=== PATIENT | female | born 2000 | race Caucasian/White ===

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

== ENCOUNTER 2019-03-07 06:28 | Inpatient (IN) ==
[2019-03-07 07:19] LABS: Appearance Urine Clear (Clear); Bacteria Urine Automated Negative (Negative); Bilirubin Urine Negative (Negative); Blood Urine 1+ (Negative); Cast Urine Automated 0 /lpf (0-5); Color Urine Yellow; Glucose Urine UA Negative (Negative); Ketones Urine Negative (Negative); Leukocyte Esterase Urine Negative (Negative); Nitrite Urine Negative (Negative); Protein Urine Negative (Negative); RBC Urine Automated 0-4 /hpf (0-4); Specific Gravity Urine 1.008 (1.000-1.030); Urobilinogen Urine Negative (Negative)
[2019-03-07 07:33] LABS: Amphetamines+Metham, Urine Neg (Neg); Barbiturates, Urine Neg (Neg); Benzodiazepine, Urine Neg (Neg); Cocaine, Urine Neg (Neg); MDMA (Ecstacy), Urine Neg (Neg); Methadone, Urine Neg (Neg); Opiate, Urine Neg (Neg); Phencyclidine, Urine Neg (Neg)
[2019-03-07 07:47] LABS: Basophils # (auto) 0.04 K/uL (0-0.2); Basophils % (auto) 0.4 %; Eosinophils # (auto) 0.06 K/uL (0-0.5); Eosinophils % (auto) 0.7 %; Hematocrit (blood only) 36.3 % (37-47); Hemoglobin 12.6 g/dL (12.0-16.0); Immature Granulocytes # (auto) 0.02 K/uL (0.00-0.02); Immature Granulocytes % (auto) 0.2 %; Lymphocytes # (auto) 1.34 K/uL (1.2-3.4); Mean Corpuscular Hemoglobin 30.8 pg (25-34); Mean Corpuscular Hgb Conc 34.7 g/dL (32-36); Mean Corpuscular Volume 88.8 fL (80-100); Mean Platelet Volume 10.3 fL (7.4-10.4); Monocytes # (auto) 0.56 K/uL (0.11-0.59); Monocytes % (auto) 6.3 %; Neutrophils # (auto) 6.89 K/uL (1.4-6.5); Neutrophils % (auto) 77.4 %; Platelet Count 330 K/uL (130-400); RDW Coefficient of Variation 12.4 % (11.5-14.5); RDW Standard Deviation 39.7 fL (36.4-46.3); Red Blood Count 4.09 M/uL (4.2-5.4); White Blood Count 8.91 K/uL (4.8-10.8)
[2019-03-07 08:05] LABS: Albumin Level 3.5 gm/dl (3.4-5.0); BUN Creatinine Ratio 17.7 (10-20); Calcium 9.3 mg/dl (8.5-10.1); Creatinine Clr Calc Pharmacy 108.4 ml/min; Est GFR (African American) 114.3; Est GFR (Non-African American) 98.6; Potassium 4.1 mmol/L (3.5-5.1)
[2019-03-07 08:12] LABS: Acetaminophen < 2 ug/ml (10-30); Salicylate < 1.7 mg/dl (2.8-20)
[2019-03-07 08:15] LABS: Albumin Globulin Ratio 0.8 (0.9-2); Bilirubin,Total 0.2 mg/dl (0.2-1); Globulin 4.7 gm/dl (2.5-4.0); Thyroid Stimulating Hormone 1.59 uIu/ml (0.300-4.500); Total Protein 8.2 gm/dl (6.4-8.2)
--- NOTE | 2019-03-07 13:01 | Emergency Department Note ---
Entered by Nicolas Dailey acting as a scribe for Rigoberto Day DO History of Present Illness General Chief Complaint: Mental Health Evaluation Stated Complaint: EMOTIONAL/MENTAL HEALTH EVALUATION Source: patient History of Present Illness Provider complaint: suicidal ideation Onset (ago): week(s) Duration: getting worse History of same: Yes Context: + significant life stressor Associated psychiatric symptoms: + depression and + suicidal ideation; no auditory hallucinations and no visual hallucinations The patient is a 18 year old female w/ PMHx of depression and anxiety who presents to the ED for a mental health evaluation after having an increase in her depression causing suicidal ideation over the past week. The patient states that her condition today was caused by an argument she got in with her boyfriend. The patient reports that the argument was over the fact that she cheated on him and he found out. 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 The patient explained that this caused a panic attack which then escalated to the thoughts of suicide. The patient states that she has discussed with her brother about how she would kill herself and her current plan is to get into a car accident. The patient reports that she has been taking Zoloft for 2 years now and she has never been treated as an inpatient. She adds that she did a sleep study recently and her doctors wanted to change when she took the Zoloft, so she has been forgetting to take it for the past week. The patient denies any AVH, physical symptoms or other past medical history. Home Medications Home Medications Medication Instructions Recorded Confirmed Type drospirenone-ethinyl estradiol 1 tab PO DAILY 03/07/19 03/07/19 History [Loryna (28)] sertraline [Zoloft] 100 mg PO HS 03/07/19 03/07/19 History Allergies Allergy/AdvReac Type Severity Reaction Status Date / Time nickel Allergy Intermediate Rash Verified 03/07/19 07:57 Past Med/Surg History Medical History Anxiety Depression Family History Other No pertinent family history in first degree relatives Social History Feels Safe at Home: Yes Smoking Status: Never smoker Review of Systems See HPI for pertinent positives & negatives. and A total of 10 systems reviewed and were otherwise negative Physical Exam Vital Signs Vital Signs - 24 hr 03/07/19 06:39 03/07/19 08:13 Temperature 36.9 C Temperature Source Oral Sepsis Recent Fever Within 48 Hours No Sepsis Action Taken by Nursing No Action Required Pulse Rate 87 Pulse Rate [Finger] 72 Pulse Rhythm [Finger] Regular Respiratory Rate 20 16 Respiratory Effort / Characteristics Non-Labored Non-Labored Respiratory Depth Normal Normal Respiratory Pattern Regular Blood Pressure 125/81 Blood Pressure [Left Arm] 118/73 Blood Pressure Mean 95 Blood Pressure Mean [Left Arm] 88 Blood Pressure Position [Left Arm] Sitting Pulse Oximetry 100 100 Oxygen Delivery Method Room Air Room Air GENERAL: Sitting up in bed, alert, wearing the hospital blues, non-toxic, tearful EYE EXAM: normal conjunctiva. OROPHARYNX: no exudate, no erythema, lips, buccal mucosa, and tongue normal and mucous membranes are moist NECK: supple, no nuchal rigidity, no adenopathy, non-tender LUNGS: Clear to auscultation. Normal chest wall mechanics HEART: no murmurs, S1 normal and S2 normal ABDOMEN: abdomen soft, non-tender, normo-active bowel, sounds, no masses, no rebound or guarding. BACK: Back is symmetrical on inspection and there is no deformity, no midline tenderness, no CVA tenderness. SKIN: no rashes and no bruising UPPER EXTREMITIES: upper extremities are grossly normal. LOWER EXTREMITIES: No pitting edema. NEURO EXAM: Normal sensorium, cranial nerves II-XII grossly intact, normal speech, no gross weakness of arms, no gross weakness of legs. PSYCH: Admits to with plan to crash car. Course ED COURSE: Vital signs were reviewed and showed situational hypertension. The patients medical record was reviewed The above diagnostic studies were performed and reviewed. ED treatments and interventions as stated above. 0720: The patient was evaluated in room B08. A complete history and physical examination was performed. 1214: Upon reevaluation, the patient is resting in bed. The patient was evaluated by the psych bilingual patient support caseworker and was accepted to [address] [place] [address]. I discussed my findings with the patient and she understands and agrees with the treatment plan. Based on the patients age, coexisting illnesses, exam and lab findings the decision to treat as an inpatient was made. The patient remained stable while under my care. The patient appeared well at the time of discharge. Medical Decision Making Differential Diagnosis Differential diagnoses considered include mood disorder, infection, hypoglycemia, electrolyte abnormalities, cardiac sources, intracerebral event, toxicologic, neurologic, as well as others. Medical Records Attestation: I reviewed the patient's medical records. Home Medications Current Medication List: was personally reviewed by me Laboratory Data Attestation: I reviewed the patient's lab results. Result diagrams: 03/07/19 07:24 03/07/19 07:24 Lab Results 03/07/19 03/07/19 03/07/19 Range/Units 06:45 06:45 06:45 WBC (4.8-10.8) K/uL RBC (4.2-5.4) M/uL Hgb (12.0-16.0) g/dL Hct (37-47) % MCV (80-100) fL MCH (25-34) pg MCHC (32-36) g/dL RDW Std Deviation (36.4-46.3) fL RDW Coeff of Tomás (11.5-14.5) % Plt Count (130-400) K/uL MPV (7.4-10.4) fL Immature Gran % (Auto) % Neut % (Auto) % Lymph % (Auto) % [place] % (Auto) % Eos % (Auto) % Baso % (Auto) % Immature Gran # (Auto) (0.00-0.02) K/uL Neut # (Auto) (1.4-6.5) K/uL Lymph # (Auto) (1.2-3.4) K/uL [place] # (Auto) (0.11-0.59) K/uL Eos # (Auto) (0-0.5) K/uL Baso # (Auto) (0-0.2) K/uL Sodium (136-145) mmol/L Potassium (3.5-5.1) mmol/L Chloride (98-107) mmol/L Carbon Dioxide (21-32) mmol/L Anion Gap (3-11) BUN (7-18) mg/dl Creatinine (0.6-1.2) mg/dl Est Cr Clr Drug Dosing ml/min Est GFR ( Amer) Est GFR (Non-Af Amer) BUN/Creatinine Ratio (10-20) Glucose (70-99) mg/dl Calcium (8.5-10.1) mg/dl Total Bilirubin (0.2-1) mg/dl AST (15-37) U/L ALT (12-78) U/L Alkaline Phosphatase (45-117) U/L Total Protein (6.4-8.2) gm/dl Albumin (3.4-5.0) gm/dl Globulin (2.5-4.0) gm/dl Albumin/Globulin Ratio (0.9-2) TSH (0.300-4.500) uIu/ml Urine Color Yellow Urine Appearance Clear (Clear) Urine pH 7.0 (4.5-7.5) Ur Specific [place] 1.008 (1.000-1.030) Urine Protein Negative (Negative) Urine Glucose (UA) Negative (Negative) Urine Ketones Negative (Negative) Urine Blood 1+ H (Negative) Urine Nitrite Negative (Negative) Urine Bilirubin Negative (Negative) Urine Urobilinogen Negative (Negative) Ur Leukocyte Esterase Negative (Negative) Urine WBC (Auto) 1-5 (0-5) /hpf Urine RBC (Auto) 0-4 (0-4) /hpf U Hyaline Cast (Auto) 0 (0-5) /lpf U Epithel Cells (Auto) 5-10 H (0-5) /lpf Urine Bacteria (Auto) Negative (Negative) POC Ur Test NEG (NEG) Salicylates (2.8-20) mg/dl Urine Opiates Screen Neg (Neg) Ur Methadone, Qual Neg (Neg) Acetaminophen (10-30) ug/ml Urine Barbiturates Neg (Neg) Ur Phencyclidine (PCP) Neg (Neg) U Amphetamin/Meth Scrn Neg (Neg) MDMA (Ecstasy) Screen Neg (Neg) U Benzodiazepines Scrn Neg (Neg) Ur Cocaine Metabolite Neg (Neg) U Marijuana (THC) Screen Neg (Neg) Ethyl Alcohol mg/dL (0-3) mg/dl 03/07/19 03/07/19 03/07/19 Range/Units 07:24 07:24 07:24 WBC 8.91 (4.8-10.8) K/uL RBC 4.09 L (4.2-5.4) M/uL Hgb 12.6 (12.0-16.0) g/dL Hct 36.3 L (37-47) % MCV 88.8 (80-100) fL MCH 30.8 (25-34) pg MCHC 34.7 (32-36) g/dL RDW Std Deviation 39.7 (36.4-46.3) fL RDW Coeff of Tomás 12.4 (11.5-14.5) % Plt Count 330 (130-400) K/uL MPV 10.3 (7.4-10.4) fL Immature Gran % (Auto) 0.2 % Neut % (Auto) 77.4 % Lymph % (Auto) 15.0 % [place] % (Auto) 6.3 % Eos % (Auto) 0.7 % Baso % (Auto) 0.4 % Immature Gran # (Auto) 0.02 (0.00-0.02) K/uL Neut # (Auto) 6.89 H (1.4-6.5) K/uL Lymph # (Auto) 1.34 (1.2-3.4) K/uL [place] # (Auto) 0.56 (0.11-0.59) K/uL Eos # (Auto) 0.06 (0-0.5) K/uL Baso # (Auto) 0.04 (0-0.2) K/uL Sodium 139 (136-145) mmol/L Potassium 4.1 (3.5-5.1) mmol/L Chloride 105 (98-107) mmol/L Carbon Dioxide 26 (21-32) mmol/L Anion Gap 8.0 (3-11) BUN 15 (7-18) mg/dl Creatinine 0.85 (0.6-1.2) mg/dl Est Cr Clr Drug Dosing 108.4 ml/min Est GFR ( Amer) 114.3 Est GFR (Non-Af Amer) 98.6 BUN/Creatinine Ratio 17.7 (10-20) Glucose 100 H (70-99) mg/dl Calcium 9.3 (8.5-10.1) mg/dl Total Bilirubin 0.2 (0.2-1) mg/dl AST 18 (15-37) U/L ALT 16 (12-78) U/L Alkaline Phosphatase 67 (45-117) U/L Total Protein 8.2 (6.4-8.2) gm/dl Albumin 3.5 (3.4-5.0) gm/dl Globulin 4.7 H (2.5-4.0) gm/dl Albumin/Globulin Ratio 0.8 L (0.9-2) TSH 1.590 (0.300-4.500) uIu/ml Urine Color Urine Appearance (Clear) Urine pH (4.5-7.5) Ur Specific [place] (1.000-1.030) Urine Protein (Negative) Urine Glucose (UA) (Negative) Urine Ketones (Negative) Urine Blood (Negative) Urine Nitrite (Negative) Urine Bilirubin (Negative) Urine Urobilinogen (Negative) Ur Leukocyte Esterase (Negative) Urine WBC (Auto) (0-5) /hpf Urine RBC (Auto) (0-4) /hpf U Hyaline Cast (Auto) (0-5) /lpf U Epithel Cells (Auto) (0-5) /lpf Urine Bacteria (Auto) (Negative) POC Ur Test (NEG) Salicylates < 1.7 L (2.8-20) mg/dl Urine Opiates Screen (Neg) Ur Methadone, Qual (Neg) Acetaminophen < 2 L (10-30) ug/ml Urine Barbiturates (Neg) Ur Phencyclidine (PCP) (Neg) U Amphetamin/Meth Scrn (Neg) MDMA (Ecstasy) Screen (Neg) U Benzodiazepines Scrn (Neg) Ur Cocaine Metabolite (Neg) U Marijuana (THC) Screen (Neg) Ethyl Alcohol mg/dL (0-3) mg/dl 03/07/19 Range/Units 07:24 WBC (4.8-10.8) K/uL RBC (4.2-5.4) M/uL Hgb (12.0-16.0) g/dL Hct (37-47) % MCV (80-100) fL MCH (25-34) pg MCHC (32-36) g/dL RDW Std Deviation (36.4-46.3) fL RDW Coeff of Tomás (11.5-14.5) % Plt Count (130-400) K/uL MPV (7.4-10.4) fL Immature Gran % (Auto) % Neut % (Auto) % Lymph % (Auto) % [place] % (Auto) % Eos % (Auto) % Baso % (Auto) % Immature Gran # (Auto) (0.00-0.02) K/uL Neut # (Auto) (1.4-6.5) K/uL Lymph # (Auto) (1.2-3.4) K/uL [place] # (Auto) (0.11-0.59) K/uL Eos # (Auto) (0-0.5) K/uL Baso # (Auto) (0-0.2) K/uL Sodium (136-145) mmol/L Potassium (3.5-5.1) mmol/L Chloride (98-107) mmol/L Carbon Dioxide (21-32) mmol/L Anion Gap (3-11) BUN (7-18) mg/dl Creatinine (0.6-1.2) mg/dl Est Cr Clr Drug Dosing ml/min Est GFR ( Amer) Est GFR (Non-Af Amer) BUN/Creatinine Ratio (10-20) Glucose (70-99) mg/dl Calcium (8.5-10.1) mg/dl Total Bilirubin (0.2-1) mg/dl AST (15-37) U/L ALT (12-78) U/L Alkaline Phosphatase (45-117) U/L Total Protein (6.4-8.2) gm/dl Albumin (3.4-5.0) gm/dl Globulin (2.5-4.0) gm/dl Albumin/Globulin Ratio (0.9-2) TSH (0.300-4.500) uIu/ml Urine Color Urine Appearance (Clear) Urine pH (4.5-7.5) Ur Specific [place] (1.000-1.030) Urine Protein (Negative) Urine Glucose (UA) (Negative) Urine Ketones (Negative) Urine Blood (Negative) Urine Nitrite (Negative) Urine Bilirubin (Negative) Urine Urobilinogen (Negative) Ur Leukocyte Esterase (Negative) Urine WBC (Auto) (0-5) /hpf Urine RBC (Auto) (0-4) /hpf U Hyaline Cast (Auto) (0-5) /lpf U Epithel Cells (Auto) (0-5) /lpf Urine Bacteria (Auto) (Negative) POC Ur Test (NEG) Salicylates (2.8-20) mg/dl Urine Opiates Screen (Neg) Ur Methadone, Qual (Neg) Acetaminophen (10-30) ug/ml Urine Barbiturates (Neg) Ur Phencyclidine (PCP) (Neg) U Amphetamin/Meth Scrn (Neg) MDMA (Ecstasy) Screen (Neg) U Benzodiazepines Scrn (Neg) Ur Cocaine Metabolite (Neg) U Marijuana (THC) Screen (Neg) Ethyl Alcohol mg/dL < 3.0 (0-3) mg/dl Blood Pressure Blood Pressure Findings: Normal blood pressure MDM Narrative Patient is a 18-year-old female who presents the ER for suicidal ideations which is been present for the past 24 hours. Patient notes that she has been having t hese intermittently over the past week. No auditory or visual hallucinations. Labs were obtained and showed no significant leukocytosis or anemia. BMP along with LFTs bilirubin and TSH was unremarkable. UA was unremarkable. Tox was negative. Alcohol was negative. Patient was agreeable to come in on 201. Patient was evaluated and admitted to 3 S. Impression & Plan Mood disorder, Suicidal thoughts Discharge Plan Visit Data Chief Complaint: Mental Health Evaluation Stated Complaint: EMOTIONAL/MENTAL HEALTH EVALUATION ED Provider: Rigoberto Day Discharge Problem: Mood disorder, Suicidal thoughts Patient Disposition: Transfer Behavioral Health Fac Forms Stand Alone Forms: My [facility], Suicide Prevention Resources Prescriptions Prescriptions: No Action drospirenone-ethinyl estradiol [Loryna (28)] 3-0.02 mg tablet 1 tab PO DAILY RF: 0 sertraline [Zoloft] 100 mg tablet 100 mg PO HS RF: 0 Referrals Referrals: Christie Clark, [Primary Care Provider] - The scribe's documentation has been prepared under my direction and personally reviewed by me in its entirety. I confirm that the note above accurately reflects all work, treatment, procedures, and medical decision making performed by me.
[2019-03-07] MEDS ORDERED: ACETAMINOPHEN 325 MG TAB PO PRN (13:45)
[2019-03-07] MEDS ORDERED: BISMUTH SUBSALICYLATE PER ML OMNICELL CHARGE PO PRN (13:45)
[2019-03-07] MEDS ORDERED: SODIUM CHLORIDE 0.65% NA SOLN 45 ML (OCEAN) PRN (13:45)
[2019-03-07] MEDS ORDERED: MAGNESIUM HYDROXIDE SUSP 30 ML UDC PO PRN (13:45)
[2019-03-07] MEDS ORDERED: ALUMINUM/MAGNESIUM SUSP 30 ML UDC PO PRN (13:45)
[2019-03-07 14:10] VITALS: O2SAT 98
[2019-03-07] MEDS: DROSPIRENONE PO SCH (19:22)
[2019-03-07] MEDS: [UNRECOGNIZED DRUG - OTHER] PO SCH (19:22)
[2019-03-08] MEDS: [UNRECOGNIZED DRUG - OTHER] PO SCH (08:49)
[2019-03-08] MEDS: DROSPIRENONE PO SCH (08:49)
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
[2019-03-08] MEDS ORDERED: BACITRACIN OINT 15 GM TUBE EXT PRN (10:31)
[2019-03-08] MEDS: FLUOXETINE HCL 20 MG CAP PO SCH (13:06)
[2019-03-09] MEDS: DROSPIRENONE PO SCH (08:50)
[2019-03-09] MEDS: [UNRECOGNIZED DRUG - OTHER] PO SCH (08:50)
[2019-03-09] MEDS: FLUOXETINE HCL 20 MG CAP PO SCH (08:51)
--- NOTE | 2019-03-09 11:49 | Psychiatric Progress Note ---
Date of Service March 09, 2019 Impression / Recommendations Impression 18-year-old female admitted voluntarily for inpatient psychiatric treatment on 03/07/19 after presenting to the ED with reports of worsening depression and SI, with consideration to crash her car in attempt to end her life. Pt has history of acting on this thought once in the past. 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 Pt's symptoms are consistent with diagnoses of recurrent major depressive disorder and generalized anxiety disorder with panic attacks. There is reported concern that her reports of chronic fatigue may be related to her depression, and may be impacted by a possible adverse reaction from sertraline. Pt was agreeable with discontinuation of sertraline and initiation of fluoxetine 20mg qAM. Pt has been participating in group and recreational programming. A family meeting is scheduled for this afternoon. Patient requires inpatient psychiatric hospitalization due to risk of suicide if discharged prematurely, without adequate mitigation of risk factors. (1) Suicidal thoughts: 03/08 - Admitted to a locked inpatient behavioral health unit, on q15 minute safety checks - Encourage medication initiation/adjustments as indicated - Encourage participation in group and recreational therapies - Gather collateral information from outpatient providers - Suggest family meeting to involve outpatient supports in safety planning - Arrange appropriate aftercare 03/09 - Pt denies SI today, but admits to ongoing concern about how she will handle difficult life events without continued suicidality (2) Depression: 03/08 - Meets criteria for major depressive disorder, recurrent - with most recent episode beginning about 3 months ago. Differential diagnoses includes dysthymic disorder, adjustment disorder, acute stress reaction, or mood disorder, NOS. - Discontinue sertraline and initiate fluoxetine 20mg daily - risks, benefits, alternatives, and potential side effects reviewed, including black box warning regarding suicidality in the adolescent population. Pt verbalized understanding, asked appropriate questions, and was ultimately agreeable with initiating the medication. - Request information from PCP and therapist to clarify diagnosis and reported symptoms. - Gather collateral from family and other supports - Encourage family meeting with outpatient supports, likely parents - Encourage participation in group and recreational programming, development of healthy and effective coping strategies - Coordinate with the university regarding schoolwork - Refer for outpatient psychiatric prescriber 03/09 - Continue fluoxetine 20mg daily, consider further titration prior to discharge - Family meeting with parents and brother this afternoon - Continue to encourage development of healthy coping strategies, ways to distract from negative thoughts (3) Generalized anxiety disorder with panic attacks: 03/08 - Initiation of fluoxetine 20mg daily, as above - Hydroxyzine prn for acute anxiety - Encourage development of healthy and effective coping strategies 03/09 - As above (4) Hypersomnia: 03/08 - Sleep study results reviewed - testing completed on 01/26/19. - Impression was significant for primary snoring, abnormal sleep architecture likely due to "first night effect", and recommendation to follow-up with multiple sleep latency test to further evaluate - It had been recommended to switch dosing of sertraline from morning to evening, given concern that sedation may be related to adverse effect from medication Inventory Assets Strengths: willingness for treatment, intelligence, consistent social supports Needs: appropriate adjustments to medications, therapeutic interventions, development of healthy and effective coping strategies Risk Factors Assessment Male: No : Yes Do You Have Access To A Gun?: Yes (kept in safe, patient not aware of location of [place]) Health Problems: No Mental Health Diagnoses: Yes Substance Use Disorders: No Previous Attempt: Yes Family History of Suicide: No Previous Psychiatric Hospitalization: No Hopelessness: Yes Smoker: No Protective Factors Assessment Catholic Beliefs: Yes : No Responsible for Young Children: No Employed: No Stable Relationships: No Supportive Family: Yes Good Rapport with Provider: Yes Interval History Identifying Information MARIAELENA WING is a 18-year-old F who currently lives in [place] with her parents. Pt has a history of anxiety and depression, and was admitted on 03/07/19 13:46 on a 201 voluntary commitment for worsening depressive symptoms and SI with consideration to crash her car. Chief Complaint "I got a call from my boyfriend last night. That was a little rough." Review of Systems Notes Constitutional: denied Cardiovascular: denied Respiratory: denied Gastrointestinal: denied Neurological: denied Psychiatric: denies symptoms other than stated above Total of at least 10 systems reviewed, pertinent positives as above and in HPI. Sleep Information Total Hours of Sleep: 7.5 Sleep Comments: pt on q-15 minute checks Meal Information Percent Meal Consumed - Breakfast: 100 Percent Meal Consumed - Lunch: 100 Percent Meal Consumed - Dinner: 100 Subjective Subjective Patient was seen & assessed and interval progress reviewed with treatment team. Staff reports the patient has been participating in groups and is supportive of peers. She has a family meeting scheduled for this afternoon with her parents and brother. Patient rated her mood a 6/10 and "anxious" last evening. Patient was seen today to assess progress since admission. She shares with this provider that she spoke with her boyfriend over the phone last evening, a conversation which she describes as "a little rough." Patient shares with this provider that her boyfriend perceived her admission as an acute reaction to their argument, feeling her suicidal thoughts were "a way to get attention." Heath perez states that she tried to share honestly with her boyfriend that these are struggle she has had for years prior to starting a relationship with him. Patient states her boyfriend "did not mention that we were broken up", but she remains uncertain of their exact status at this time. Patient is planning to discuss this further, after she is able to better organize her own thoughts. Patient states "I was a 2/10 after the phone call. I was happy he called, but my mind kept racing. The thoughts carried over into this morning." She states she was a 4/10 after friends from [employer] visited, and then a 6/10 after her family visited. Pt states that she was happy to have a conversation with some "older supports through my [employer]", as she states they were able to provide a "biblical perspective." Pt states that they discussed her frustration when things don't go as planned, and she was reminded "that there is a greater plan than just mine. That when things go wrong, it must not be part of His plan. That really changed my mind set a lot." Pt states she has been practicing techniques to distract herself from negative thoughts. She denies SI at this time. When asked how patient feels she would manage difficult conversations in the future that may lead to recurrence of SI, she states "I think reminding myself that it must not be part of the plan, and using my other coping skills." Pt does admit she is "scared I won't be able to do these things on my own, but I do think I'm already learning a lot." She denies acute needs or concerns today. Physical Exam Psychiatric Orientation: alert, oriented x 3 and cooperative (and pleasant) Apperance: appropriately dressed (casually, in t-shirt and sweat pants), appropriately groomed (recently showered) and appeared stated age Eye Contact: good eye contact Motor Behavior: steady gait and station and no abnormal motor movements Speech: normal rate/rhythm/volume of speech Affect: euthymic affect (joking and smiling appropriately ), + anxious affect and mood congruent with affect Mood: + anxious mood ("Still worried about how I will handle things on my own") Thought Process: goal directed thought process, linear/logical thought process, clear/coherent thought process and thought association intact Thought Content: reality based without delusions; no hopelessness and no worthlessness Suicidal Thoughts: denies suicidal thoughts and denies suicidal intent Homicidal Thoughts: denies homicidal thoughts Hallucinations: no auditory hallucinations and no visual hallucinations Cognition: remote memory grossly intact, attention grossly intact and language grossly intact Insight: good insight Judgement: good judgement Vital Signs (Past 24 Hours) Last Vital Signs Temp 36.7 C 03/09/19 07:04 Pulse 92 H 03/09/19 07:05 Resp 18 03/09/19 07:04 BP 99/64 L 03/09/19 07:05 Pulse Ox 98 03/07/19 14:08 Results & Data Current Inpatient Medications Current Inpatient Medications: Current Inpatient Medications Acetaminophen (Tylenol) 650 mg PO Q4H PRN PRN Reason: Headache or Minor Fever Stop: 04/06/19 13:44 Last Admin: 03/08/19 19:31 Dose: 650 mg Documented by: Al Hydrox/Mg Hydrox/Simethicone (Maalox) 30 ml PO Q4H PRN PRN Reason: GI Upset Stop: 04/06/19 13:44 Bacitracin (Bacitracin) 1 appln EXT TID PRN PRN Reason: Affected Skin Folds Stop: 04/07/19 10:30 Last Admin: 03/08/19 13:23 Dose: 1 appln Documented by: Bismuth Subsalicylate (Kaopectate) 15 ml PO PRN PRN PRN Reason: Loose Stool Stop: 04/06/19 13:44 Fluoxetine HCl (Prozac) 20 mg PO QAM ETHAN Stop: 04/07/19 11:44 Last Admin: 03/09/19 08:51 Dose: 20 mg Documented by: Hydroxyzine HCl (Vistaril) 25 mg PO Q4H PRN PRN Reason: Anxiety Stop: 04/06/19 13:44 Hydroxyzine HCl (Vistaril) 50 mg PO HSZ PRN PRN Reason: Insomnia Stop: 04/06/19 13:44 Magnesium Hydroxide (Milk Of Magnesia) 30 ml PO DAILY PRN PRN Reason: Constipation Stop: 04/06/19 13:44 Drospirenone & (Ethinyl) 1 ea PO DAILY ETHAN Stop: 04/06/19 18:29 Last Admin: 03/09/19 08:50 Dose: 1 ea Documented by: Sodium Chloride ([place] Nasal) 1 - 2 sprays NA PRN PRN PRN Reason: Nasal Dryness/Congestion Stop: 04/06/19 13:44 Mental Health & Subst Abuse Tx Therapist Name of Therapist: [employer] Therapist's ext 11 Date of Therapist Appointment: 03/15/19 Time of Therapist Appointment: 11:30am Therapy Appointment Comment: [address] [place] [address] Deflash And Wash Operator Name of Deflash And Wash Operator: None Post Discharge Appointments Primary Care Physician Name Of Family Doctor: Margaret Clark Primary Care Provider Appointment Comment: [address], [place] [address] Contact Information Discharge Discharge Address: [address] [place] [address], [place] [address] (1) Depression Active/Remission status: currently active Depression Type: major depressive disorder Major depression episode severity: severe Major depression recurrence: recurrent Psychotic features: without psychotic features Qualified Code(s): F33.2 - Major depressive disorder, recurrent severe without psychotic features
[2019-03-10] MEDS: [UNRECOGNIZED DRUG - OTHER] PO SCH (09:23)
[2019-03-10] MEDS: DROSPIRENONE PO SCH (09:23)
[2019-03-10] MEDS: FLUOXETINE HCL 20 MG CAP PO SCH (09:23)
[2019-03-10] MEDS ORDERED: FLUOXETINE HCL 20 MG CAP PO ONE (10:28)
--- NOTE | 2019-03-10 12:22 | Psychiatric Progress Note ---
Date of Service March 10, 2019 Impression / Recommendations Impression 18-year-old female admitted voluntarily for inpatient psychiatric treatment on 03/07/19 after presenting to the ED with reports of worsening depression and SI, with consideration to crash her car in attempt to end her life. Pt has history of acting on this thought once in the past. 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 Pt's symptoms are consistent with diagnoses of recurrent major depressive disorder and generalized anxiety disorder with panic attacks. There is reported concern that her reports of chronic fatigue may be related to her depression, and may be impacted by a possible adverse reaction from sertraline. Pt was agreeable with discontinuation of sertraline and initiation of fluoxetine, which has been titrated to 40mg qAM. Pt has been participating in group and recreational programming. A family meeting was held and family remains supportive. Patient requires inpatient psychiatric hospitalization due to risk of suicide if discharged prematurely, without adequate mitigation of risk factors. (1) Suicidal thoughts: 03/08 - Admitted to a locked inpatient behavioral health unit, on q15 minute safety checks - Encourage medication initiation/adjustments as indicated - Encourage participation in group and recreational therapies - Gather collateral information from outpatient providers - Suggest family meeting to involve outpatient supports in safety planning - Arrange appropriate aftercare 03/09 - Pt denies SI today, but admits to ongoing concern about how she will handle difficult life events without continued suicidality 03/10 - Pt denies SI today, continues to work on coping strategies to combat negat adan thoughts in the future (2) Depression: 03/08 - Meets criteria for major depressive disorder, recurrent - with most recent episode beginning about 3 months ago. Differential diagnoses includes dysthymic disorder, adjustment disorder, acute stress reaction, or mood disorder, NOS. - Discontinue sertraline and initiate fluoxetine 20mg daily - risks, benefits, alternatives, and potential side effects reviewed, including black box warning regarding suicidality in the adolescent population. Pt verbalized understanding, asked appropriate questions, and was ultimately agreeable with initiating the medication. - Request information from PCP and therapist to clarify diagnosis and reported symptoms. - Gather collateral from family and other supports - Encourage family meeting with outpatient supports, likely parents - Encourage participation in group and recreational programming, development of healthy and effective coping strategies - Coordinate with the [employer] regarding schoolwork - Refer for outpatient psychiatric prescriber 03/09 - Continue fluoxetine 20mg daily, consider further titration prior to discharge - Family meeting with parents and brother this afternoon - Continue to encourage development of healthy coping strategies, ways to distract from negative thoughts 03/10 - Additional dose of fluoxetine given this morning, titrating dose to 40mg daily - Family meeting held yesterday with family, they remain highly supportive - Continue to engage in group programming - Pt considering discharge tomorrow, as does not yet feel she is able to contract for safety outside of the hospital setting (3) Generalized anxiety disorder with panic attacks: 03/08 - Initiation of fluoxetine 20mg daily, as above - Hydroxyzine prn for acute anxiety - Encourage development of healthy and effective coping strategies 03/09 - As above (4) Hypersomnia: 03/08 - Sleep study results reviewed - testing completed on 01/26/19. - Impression was significant for primary snoring, abnormal sleep architecture likely due to "first night effect", and recommendation to follow-up with multiple sleep latency test to further evaluate - It had been recommended to switch dosing of sertraline from morning to evening, given concern that sedation may be related to adverse effect from medication Inventory Assets Strengths: willingness for treatment, intelligence, consistent social supports Needs: appropriate adjustments to medications, therapeutic interventions, development of healthy and effective coping strategies Risk Factors Assessment Male: No : Yes Do You Have Access To A Gun?: Yes (kept in safe, patient not aware of location of [place]) Health Problems: No Mental Health Diagnoses: Yes Substance Use Disorders: No Previous Attempt: Yes Family History of Suicide: No Previous Psychiatric Hospitalization: No Hopelessness: Yes Smoker: No Protective Factors Assessment Taoist Beliefs: Yes : No Responsible for Young Children: No Employed: No Stable Relationships: No Supportive Family: Yes Good Rapport with Provider: Yes Interval History Identifying Information MARIAELENA WING is a 18-year-old F who currently lives in [place] with her parents. Pt has a history of anxiety and depression, and was admitted on 03/07/19 13:46 on a 201 voluntary commitment for worsening depressive symptoms and SI with consideration to crash her car. Chief Complaint "Good, I had a pretty good day." Review of Systems Notes Constitutional: denied Cardiovascular: denied Respiratory: denied Gastrointestinal: denied Neurological: denied Psychiatric: denies symptoms other than stated above Total of at least 10 systems reviewed, pertinent positives as above and in HPI. Sleep Information Total Hours of Sleep: 7 Sleep Comments: pt on q-15 minute checks Meal Information Percent Meal Consumed - Breakfast: 100 Percent Meal Consumed - Lunch: 100 Percent Meal Consumed - Dinner: 100 Subjective Subjective Patient was seen & assessed and interval progress reviewed with nursing and social work. Staff report that the patient had a productive family meeting yesterday, and they remain supportive. Patient rated her mood last evening a 78/10 and "giddy". Patient was seen today to assess progress since admission. She states that she has been having "a pretty good day." The patient discusses her family meeting from yesterday, describing it as "good." She states that she and her family discussed how they will handle "future breakdowns." Patient admits that generally when she is upset she likes to be left alone, but understands the importance of communicating her feelings to supports. Patient states they have devised a plan to have a designated "easy access coping strategy area", for patient to direct herself to or parents to direct the patient to when she is upset. Patient states that they decided that once the patient has completed a coping activity, then the parents would reach out to her in order to process her feelings. Patient verbalized multiple coping activities she plans to have available, including coloring, looking through family pictures, and listening to music. The patient states that she feels comfortable reaching out to her parents should acute negative thoughts occur. Patient states they also discussed concern about her driving, given consideration to wreck her car when she is upset. Patient states that she has a list of several individual she plans to call if she is upset, and agreed to not drive if she is not emotionally stable at the moment. Patient states she does understand why this is important and is motivated to develop a reasonable plan with her family. Patient denies continuation of suicidal ideation. We did discuss potential to further titrate her dosage of fluoxetine, which she is agreeable with. Risks, benefits, and potential side effects (including box warning for risk of increased suicidality in children and adolescents) were reviewed. Patient verbalized understanding and is agreeable with titration of fluoxetine to 40 mg daily. Patient denies acute needs or concerns at this time. She states she does not feel ready to return home today, but feels she may be able to contract for safety by tomorrow. Physical Exam Psychiatric Orientation: alert, oriented x 3 and cooperative (And pleasant) Apperance: appropriately dressed, appropriately groomed and appeared stated age Eye Contact: good eye contact Motor Behavior: steady gait and station and no abnormal motor movements Speech: normal rate/rhythm/volume of speech Affect: euthymic affect (Smiling appropriately) and mood congruent with affect Mood: no depressed mood ("I am feeling pretty good") Thought Process: goal directed thought process, linear/logical thought process, clear/coherent thought process and thought association intact Thought Content: reality based without delusions; no hopelessness and no worthlessness Suicidal Thoughts: denies suicidal thoughts, denies suicidal plan and denies suicidal intent Homicidal Thoughts: denies homicidal thoughts Hallucinations: no auditory hallucinations and no visual hallucinations Cognition: attention grossly intact and language grossly intact Insight: good insight Judgement: good judgement Vital Signs (Past 24 Hours) Last Vital Signs Temp 36.3 C L 03/10/19 06:52 Pulse 77 03/10/19 06:55 Resp 18 03/10/19 06:52 BP 110/75 03/10/19 06:55 Pulse Ox 98 03/07/19 14:08 Results & Data Current Inpatient Medications Current Inpatient Medications: Current Inpatient Medications Acetaminophen (Tylenol) 650 mg PO Q4H PRN PRN Reason: Headache or Minor Fever Stop: 04/06/19 13:44 Last Admin: 03/08/19 19:31 Dose: 650 mg Documented by: Al Hydrox/Mg Hydrox/Simethicone (Maalox) 30 ml PO Q4H PRN PRN Reason: GI Upset Stop: 04/06/19 13:44 Bacitracin (Bacitracin) 1 appln EXT TID PRN PRN Reason: Affected Skin Folds Stop: 04/07/19 10:30 Last Admin: 03/08/19 13:23 Dose: 1 appln Documented by: Bismuth Subsalicylate (Kaopectate) 15 ml PO PRN PRN PRN Reason: Loose Stool Stop: 04/06/19 13:44 Fluoxetine HCl (Prozac) 40 mg PO QAM ETHAN Stop: 04/10/19 08:59 Hydroxyzine HCl (Vistaril) 25 mg PO Q4H PRN PRN Reason: Anxiety Stop: 04/06/19 13:44 Hydroxyzine HCl (Vistaril) 50 mg PO HSZ PRN PRN Reason: Insomnia Stop: 04/06/19 13:44 Magnesium Hydroxide (Milk Of Magnesia) 30 ml PO DAILY PRN PRN Reason: Constipation Stop: 04/06/19 13:44 Drospirenone & (Ethinyl) 1 ea PO DAILY ETHAN Stop: 04/06/19 18:29 Last Admin: 03/10/19 09:23 Dose: 1 ea Documented by: Sodium Chloride ([place] Nasal) 1 - 2 sprays NA PRN PRN PRN Reason: Nasal Dryness/Congestion Stop: 04/06/19 13:44 Mental Health & Subst Abuse Tx Psychiatrist Name of Psychiatrist: Donna Zamudio Psychiatrist's Psychiatric Appointment Comment: [address] [place] [place] [address] Therapist Name of Therapist: [facility], [employer] Therapist's ext 11 Date of Therapist Appointment: 03/15/19 Time of Therapist Appointment: 11:30am Therapy Appointment Comment: [address] [place] [address] Marketing Data Specialist Name of Marketing Data Specialist: [facility] Phone Number for Marketing Data Specialist: [phone] Date of Appointment with Marketing Data Specialist: 03/14/19 Time of Appointment with Marketing Data Specialist: 10am Case Management Appointment Comment: [address] [place] [address] Post Discharge Appointments Primary Care Physician Name Of Family Doctor: Margaret Clark Primary Care Time of Appointment with PCP: Follow up as needed. Provider Appointment Comment: [address], [place] [address] Contact Information Discharge Discharge Address: [address] [place] [address], [place] [address] (1) Depression Active/Remission status: currently active Depression Type: major depressive disorder Major depression episode severity: severe Major depression recurrence: recurrent Psychotic features: without psychotic features Qualified Code(s): F33.2 - Major depressive disorder, recurrent severe without psychotic features
[2019-03-11 06:51] VITALS: BP 97/63; TEMP 98.1
[2019-03-11] MEDS: DROSPIRENONE PO SCH (08:59)
[2019-03-11] MEDS: [UNRECOGNIZED DRUG - OTHER] PO SCH (08:59)
[2019-03-11] MEDS ORDERED: FLUOXETINE HCL 20 MG CAP PO SCH (09:00)
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
[2019-03-11 10:42] VITALS: PULSE 74
== END 2019-03-11 13:57 | disposition home or self-care (01) | DRG 885 ==
LOC: ED 06:28 → 3S 13:46

== ENCOUNTER 2021-07-23 22:58 | Inpatient (IN) ==
[2021-07-24] MEDS ORDERED: OXYTOCIN 30 UNITS/500 ML BAG IV PRN ×3 (01:27→15:51)
--- NOTE | 2021-07-24 01:41 | History & Physical Report ---
Date of Service July 24, 2021 Assessment & Plan (1) 40 weeks gestation of : Plan: Admit, routine labs including third trimester HIV and RPR ordered Epidural with patient request AROM after Anticipate spontaneous vaginal delivery (2) Elevated BP without diagnosis of hypertension: Plan: Elevated blood pressure 136/92 PIH labs ordered, does not meet criteria for gestational hypertension at this time (no elevated BP at [facility]) (3) Rh negative status during in third trimester: Plan: Received RhoGam 04/29/2021 Appropriate screening (4) Depression affecting in third trimester, antepartum: Plan: Continue medication as prescribed (5) Obesity affecting in third trimester: (6) Antepartum anemia complicating in third trimester: Plan: Admission CBC pending History of Present Illness Chief Complaint: Ctx Primary Care Provider: Christie Clark DO Patient is a 20-year-old G1, P0 at 40 weeks and 5 days dated by last menstrual period consistent with a 9-week ultrasound who presents to labor and delivery for ongoing contractions that were every 5 minutes, but currently now every 1 to 2 minutes. She made cervical change from 3 to 4 cm to 5 cm and was admitted for term labor. She desires epidural for pain control Patient denies leaking of fluid or vaginal bleeding, notes good movement. Denies headache, blurry vision, right upper quadrant or epigastric pain. Otherwise feeling well has been complicated by Rh- status, in which she got RhoGam on April 29, 2021, antepartum anemia in which she takes oral iron and vitamin C, depression affecting , class I obesity. Allergies Allergy/AdvReac Type Severity Reaction Status Date / Time nickel Allergy Intermediate Rash Verified 08/28/20 07:45 No Known Drug Allergies Allergy Unknown Verified 08/28/20 07:45 Home Medications Medication Instructions Recorded Confirmed Type acetaminophen 325 mg tablet 650 mg PO QID PRN 08/19/20 07/23/21 History (Tylenol) fluoxetine 20 mg capsule 30 mg PO QAM 08/19/20 07/23/21 History ascorbic acid (vitamin C) 500 mg 500 mg PO DAILY 07/23/21 07/23/21 History tablet (Vitamin C) docusate sodium 100 mg capsule 100 mg PO DAILY 07/23/21 07/23/21 History (Colace) ferrous sulfate 325 mg (65 mg 325 mg PO DAILY 07/23/21 07/23/21 History iron) tablet (iron) [id number] 1 mg 1 tab PO DAILY 07/23/21 07/23/21 History tablet Patient History Medical History Anxiety Depression Surgical History No history of previous surgery Family History Other No pertinent family history in first degree relatives Social History Smoking Status: Never smoker Hx Alcohol Use: No Hx Substance Use: No Preferred Language: Emir[place] Communication Ability: Effective Eap Specialist Required: No Beliefs That Will Affect Care: Rastafarian (Congregation) marital status: Feels Safe at Home: Yes Safety Concerns: Feels Safe At This Time Assistive Devices: None OB History DIRECTOR TECHNICAL History See H+P scanned Review of Systems All systems reviewed & are unremarkable except as noted in HPI & below Physical Exam Constitutional: WD/WN, vitals as above Respiratory: normal respiratory effort, lungs clear to auscultation Cardiovascular: RRR, no murmur, no edema Gastrointestinal (Abdomen): normal bowel sounds, soft, nontender, no hepatosplenomegaly Genitourinary: no vaginal lesions, no adnexal mass normal external appearance OB Exam Abdomen: + fundal height, + heart tones, + vertex and + estimated weight Cervix: 5/80/-2, intact Results & Data ([facility]) Vital Signs (Past 12 Hours) Vital Signs Temp Pulse Resp BP 07/23/21 23:12 37.0 C 18 07/23/21 23:08 77 136/92 07/23/21 23:07 37.0 C 16 Monitoring External Monitor FHT: baseline 140-145, moderate variability, early decelerations, no accelerations Tocodynamometer Tocometer: Q. 1 to 2 minutes
[2021-07-24 02:15] LABS: Hematocrit (blood only) 36.6 % (37-47); Mean Corpuscular Hemoglobin 31.2 pg (25-34); Mean Corpuscular Hgb Conc 35.5 g/dL (32-36); Mean Corpuscular Volume 87.8 fL (80-100); Mean Platelet Volume 11.6 fL (7.4-10.4); Platelet Count 248 K/uL (130-400); RDW Coefficient of Variation 13.6 % (11.5-14.5); RDW Standard Deviation 43.6 fL (36.4-46.3); Red Blood Count 4.17 M/uL (4.2-5.4); White Blood Count 11.97 K/uL (4.8-10.8)
[2021-07-24] MEDS ORDERED: CALCIUM CARBONATE 500 MG CHEWABLE TAB PO PRN (02:30)
[2021-07-24] MEDS: LACTATED RINGER'S 1,000 ML IV PRN ×3 (02:32→09:06)
[2021-07-24 02:33] LABS: Albumin Globulin Ratio 1.1 (0.9-2); Albumin Level 3.4 gm/dl (3.4-5.0); BUN Creatinine Ratio 27.7 (10-20); Bilirubin,Total 0.3 mg/dl (0.2-1.0); Calcium 9.1 mg/dl (8.5-10.1); Creatinine Clr Calc Pharmacy 160.4 ml/min; Est GFR (African American) 146.1 ml/min; Globulin 3.2 gm/dl (2.5-4.0); Potassium 4.2 mmol/L (3.5-5.1); Total Protein 6.6 gm/dl (6.0-8.3)
[2021-07-24 02:56] LABS: Protein Creatinine Ratio Urine 0.2 (0-0.2); Total Protein Urine Random 27.7 mg/dl (0-11.9)
[2021-07-24] MEDS ORDERED: SODIUM CHLORIDE 0.9% INJ 10 ML VIAL ONE ×2 (02:56→13:10)
[2021-07-24] MEDS ORDERED: ePHEDrine sulfate 50 MG/ML AMP ONE (02:56)
[2021-07-24] MEDS ORDERED: BUPIVACAINE 0.25% 30 ML VIAL ONE ×2 (02:56→13:10)
[2021-07-24] MEDS ORDERED: fentaNYL 2MCG/ML ROPIVACAINE 1.25MG/ML 100 ML BAG EPI ONE (02:57)
[2021-07-24] MEDS ORDERED: fentaNYL citrate 100 MCG/2 ML VIAL ONE ×2 (03:00→13:48)
[2021-07-24] MEDS ORDERED: NALOXONE HCL 0.4 MG/1 ML VIAL/CARP IV PRN (03:28)
[2021-07-24] MEDS ORDERED: NALBUPHINE HCL INJ 10 MG/ML AMP IV PRN (03:28)
[2021-07-24] MEDS ORDERED: NALOXONE HCL 1 MG in SODIUM CHLORIDE 0.9% 1000ML 1,000 ML IV PRN (03:28)
[2021-07-24] MEDS ORDERED: fentaNYL 2MCG/ML ROPIVACAINE 1.25MG/ML 100 ML BAG EPI PRN (03:28)
[2021-07-24] MEDS ORDERED: diphenhydrAMINE 50 MG/ML VIAL IV PRN (03:28)
[2021-07-24] MEDS ORDERED: ONDANSETRON INJ 2 MG/ML 2 ML VIAL IV PRN (03:28)
[2021-07-24] MEDS ORDERED: ePHEDrine sulfate 50 MG/ML AMP IV PRN (03:28)
--- NOTE | 2021-07-24 03:31 | Anesthesiology Consultation ---
Date of Service July 24, 2021 Assessment & Plan (1) Encounter for pre-operative examination: Chart Review Chart Review: Acceptable Risk for Labor Epidural Consults Requested none ASA ASA2 Proposed Anesthesia Anesthesia Type: Labor Epidural Risk / Benefits Reviewed With: PT / POA / Parent / Guardian, Accepts Plan and Informed Consent Obtained History Height/Weight Height: 5 ft 4 in Weight: 105.1 kg Allergies Allergy/AdvReac Type Severity Reaction Status Date / Time nickel Allergy Intermediate Rash Verified 08/28/20 07:45 No Known Drug Allergies Allergy Unknown Verified 08/28/20 07:45 Medications Home Medications Medication Instructions Recorded Confirmed Last Taken acetaminophen 325 mg tablet 650 mg PO QID PRN 08/19/20 07/23/21 07/22/21 21:00 (Tylenol) fluoxetine 20 mg capsule 30 mg PO QAM 08/19/20 07/23/21 07/23/21 09:00 ascorbic acid (vitamin C) 500 mg 500 mg PO DAILY 07/23/21 07/23/21 07/23/21 09:00 tablet (Vitamin C) docusate sodium 100 mg capsule 100 mg PO DAILY 07/23/21 07/23/21 07/23/21 09:00 (Colace) ferrous sulfate 325 mg (65 mg 325 mg PO DAILY 07/23/21 07/23/21 07/23/21 09:00 iron) tablet (iron) [id number] 1 mg 1 tab PO DAILY 07/23/21 07/23/21 07/23/21 09:00 tablet Active Medications Generic Name Dose Route Start Last Admin Trade Name Freq PRN Reason Stop Dose Admin Calcium Carbonate 500 mg 07/24/21 02:30 07/24/21 02:42 Calcium Carbonate 500 Mg Chewable Tab PO 08/23/21 02:29 500 mg DAILY PRN Administration Indigestion Lactated Ringer's 1,000 mls @ 125 mls/hr 07/24/21 01:27 07/24/21 02:32 Lr IV 07/26/21 01:26 999 mls/hr .Q8H PRN Administration L&D Protocol Protocol Past Medical History Medical History Anxiety Depression Exercise / Class Metabolic Activity II 4-5 Yardwork/Stairs/Walk up hill Past Family History Family History Other No pertinent family history in first degree relatives Past Surgical History Surgical History No history of previous surgery Past Anesthesia History No Hx of Anesthesia Complications and No Family Hx of Anesthesia Complications History of PONV No Hx of PONV and No Hx of Motion Sickness Social History Smoking Status: Never smoker Hx Alcohol Use: No Hx Substance Use: No Physical Exam Vital Signs Last Vital Signs Temp 98.8 F 07/24/21 02:17 Pulse 76 07/24/21 03:22 Resp 16 07/24/21 02:17 BP 140/94 07/24/21 02:17 Pulse Ox 97 07/24/21 03:22 ENMT Mouth: no dentition abnormality Thyromental Distance: > or= 3.5 Finger Breadths Mallampati Class: II Neck normal visual inspection Respiratory normal respiratory effort Auscultation: lungs clear to auscultation bilaterally Cardiovascular Rate/Rhythm: regular rate and regular rhythm Testing Laboratory Results 07/24/21 01:54 07/24/21 01:54
[2021-07-24] MEDS ORDERED: LIDOCAINE 1% MPF 5 ML VIAL ONE (03:57)
--- NOTE | 2021-07-24 06:18 | Labor Progress Brief Note ---
Date of Service July 24, 2021 Subjective Patient comfortable on epidural at this time Assessment & Plan (1) 40 weeks gestation of : Plan: Start pit when reactive strip Anticipate spontaneous vaginal delivery (2) Rh negative status during in third trimester: Plan: Received RhoGam 04/29/2021 Appropriate screening (3) Depression affecting in third trimester, antepartum: Plan: Continue medication as prescribed (4) Obesity affecting in third trimester: (5) Antepartum anemia complicating in third trimester: Plan: Admission CBC pending (6) Gestational hypertension w/o significant proteinuria in 3rd trimester: Plan: Meets criteria based on elevated blood pressures 4 hours apart, PIH labs normal, protein creatinine ratio 0.2 Admission and Anticipated Discharge Date Admission Date: July 24, 2021 Physical Exam Constitutional: WD/WN, vitals as above Respiratory: normal respiratory effort, lungs clear to auscultation Cardiovascular: RRR, no murmur, no edema Gastrointestinal (Abdomen): normal bowel sounds, soft, nontender, no hepatospl enomegaly Genitourinary: no vaginal lesions, no adnexal mass normal external appearance OB Exam Abdomen: + fundal height ( heart tracing: Baseline, 1 40-1 45, moderate variability, no accelera), + heart tones (Tocometer: Q. 1 to 2 minutes, Cx 5/80/-2 AROM clear fluid, no cord felt), + vertex and + estimated weight Results & Data ([facility]) Vital Signs (Past 12 Hours) Vital Signs Temp Pulse Resp BP Pulse Ox Pulse Ox 07/24/21 06:10 105 H 98 07/24/21 06:06 100 H 135/96 07/24/21 06:05 105 H 98 07/24/21 06:00 85 96 07/24/21 05:59 88 123/63 07/24/21 05:55 86 96 07/24/21 05:50 82 96 07/24/21 05:45 84 96 07/24/21 05:40 78 97 07/24/21 05:36 81 136/60 07/24/21 05:35 81 97 07/24/21 05:30 82 97 07/24/21 05:25 81 97 07/24/21 05:20 86 97 07/24/21 05:19 86 140/64 07/24/21 05:15 84 97 07/24/21 05:10 88 97 07/24/21 05:05 87 139/84 98 07/24/21 05:00 88 97 07/24/21 04:55 86 98 07/24/21 04:50 89 97 07/24/21 04:49 97 H 127/76 07/24/21 04:45 88 99 07/24/21 04:40 100 H 98 07/24/21 04:35 92 H 98 07/24/21 04:32 88 145/64 H 07/24/21 04:30 95 H 98 07/24/21 04:29 88 151/67 H 07/24/21 04:26 93 H 159/70 H 07/24/21 04:25 92 H 98 07/24/21 04:23 96 H 152/67 H 07/24/21 04:20 91 H 152/66 H 98 07/24/21 04:17 91 H 148/81 H 98 07/24/21 04:15 109 H 98 07/24/21 04:14 93 H 140/70 07/24/21 04:11 88 140/76 07/24/21 04:10 94 H 98 07/24/21 04:08 82 140/84 07/24/21 04:05 88 99 07/24/21 04:04 89 134/79 07/24/21 04:00 105 H 98 07/24/21 03:55 93 H 98 07/24/21 03:50 99 H 97 07/24/21 03:45 97 H 98 07/24/21 03:40 99 H 99 07/24/21 03:35 96 H 99 07/24/21 03:30 87 99 07/24/21 03:22 76 97 07/24/21 02:17 37.1 C 82 16 140/94 07/23/21 23:12 37.0 C 18 07/23/21 23:08 77 136/92 07/23/21 23:07 37.0 C 16
--- NOTE | 2021-07-24 07:28 | Obstetrical Progress Note ---
Date of Service July 24, 2021 Assessment & Plan Admission and Anticipated Discharge Date Admission Date: July 24, 2021 Subjective Patient is seen and examined Reviewed her records and confirmed with her No h/o genital HSV/ Chlamydia/ GC GBS negative Comfortable received epidural for pain. VSS Afebrile VE; 5-6 cm/ 70%/ -3 FHR categ I Hoehne: ctxs q 4-5 min Plan to augment with Oxytocin and continue to monitor closely Results & Data ([facility]) Vital Signs (Past 12 Hours) Vital Signs Temp Pulse Resp BP Pulse Ox Pulse Ox 07/24/21 07:21 101 H 128/79 07/24/21 07:20 96 H 98 07/24/21 07:15 89 97 07/24/21 07:10 92 H 97 07/24/21 07:05 87 129/63 97 07/24/21 07:00 88 96 07/24/21 06:55 86 96 07/24/21 06:52 82 129/68 07/24/21 06:50 83 97 07/24/21 06:45 105 H 96 07/24/21 06:40 96 H 96 07/24/21 06:35 88 132/82 98 07/24/21 06:30 89 97 07/24/21 06:25 92 H 98 07/24/21 06:20 94 H 99 07/24/21 06:19 86 133/92 07/24/21 06:15 37.1 C 106 H 16 98 07/24/21 06:10 105 H 98 07/24/21 06:06 100 H 135/96 07/24/21 06:05 105 H 98 07/24/21 06:00 85 96 07/24/21 05:59 88 123/63 07/24/21 05:55 86 96 07/24/21 05:50 82 96 07/24/21 05:45 84 96 07/24/21 05:40 78 97 07/24/21 05:36 81 136/60 07/24/21 05:35 81 97 07/24/21 05:30 82 97 07/24/21 05:25 81 97 07/24/21 05:20 86 97 07/24/21 05:19 86 140/64 07/24/21 05:15 84 97 07/24/21 05:10 88 97 07/24/21 05:05 87 139/84 98 07/24/21 05:00 88 97 07/24/21 04:55 86 98 07/24/21 04:50 89 97 07/24/21 04:49 97 H 127/76 07/24/21 04:45 88 99 07/24/21 04:40 100 H 98 07/24/21 04:35 92 H 98 07/24/21 04:32 88 145/64 H 07/24/21 04:30 95 H 98 07/24/21 04:29 88 151/67 H 07/24/21 04:26 93 H 159/70 H 07/24/21 04:25 92 H 98 07/24/21 04:23 96 H 152/67 H 07/24/21 04:20 91 H 152/66 H 98 07/24/21 04:17 91 H 148/81 H 98 07/24/21 04:15 109 H 98 07/24/21 04:14 93 H 140/70 07/24/21 04:11 88 140/76 07/24/21 04:10 94 H 98 07/24/21 04:08 82 140/84 07/24/21 04:05 88 99 07/24/21 04:04 89 134/79 07/24/21 04:00 105 H 98 07/24/21 03:55 93 H 98 07/24/21 03:50 99 H 97 07/24/21 03:45 97 H 98 07/24/21 03:40 99 H 99 07/24/21 03:35 96 H 99 07/24/21 03:30 87 99 07/24/21 03:22 76 97 07/24/21 02:17 37.1 C 82 16 140/94 07/23/21 23:12 37.0 C 18 07/23/21 23:08 77 136/92 07/23/21 23:07 37.0 C 16
--- NOTE | 2021-07-24 09:01 | Obstetrical Progress Note ---
Date of Service July 24, 2021 Assessment & Plan Admission and Anticipated Discharge Date Admission Date: July 24, 2021 Subjective FHR had deceleration to 60's on maternal right lateral position Recovered on Left lateral position with IVF bolus and Nasal O2 on Pitocin was stopped Now 130-140's VE unchanged Continue to monitor closely Results & Data ([facility]) Vital Signs (Past 12 Hours) Vital Signs Temp Pulse Resp BP Pulse Ox Pulse Ox 07/24/21 08:55 81 100 07/24/21 08:50 88 115/62 100 07/24/21 08:47 82 118/67 07/24/21 08:45 80 98 07/24/21 08:40 91 H 100 07/24/21 08:35 81 107/59 L 97 07/24/21 08:30 83 97 07/24/21 08:25 80 97 07/24/21 08:20 83 109/58 L 97 07/24/21 08:15 75 97 07/24/21 08:10 90 97 07/24/21 08:05 78 120/62 98 07/24/21 08:00 84 18 97 07/24/21 07:55 83 97 07/24/21 07:50 88 18 112/59 L 98 07/24/21 07:45 90 99 07/24/21 07:40 90 98 07/24/21 07:36 83 121/60 07/24/21 07:35 93 H 98 07/24/21 07:30 87 18 98 07/24/21 07:25 104 H 99 07/24/21 07:21 101 H 128/79 07/24/21 07:20 96 H 98 07/24/21 07:15 89 97 07/24/21 07:10 92 H 97 07/24/21 07:05 87 129/63 97 07/24/21 07:00 37.0 C 88 18 96 07/24/21 06:55 86 96 07/24/21 06:52 82 129/68 07/24/21 06:50 83 97 07/24/21 06:45 105 H 96 07/24/21 06:40 96 H 96 07/24/21 06:35 88 132/82 98 07/24/21 06:30 89 97 07/24/21 06:25 92 H 98 07/24/21 06:20 94 H 99 07/24/21 06:19 86 133/92 07/24/21 06:15 37.1 C 106 H 16 98 07/24/21 06:10 105 H 98 07/24/21 06:06 100 H 135/96 07/24/21 06:05 105 H 98 07/24/21 06:00 85 96 07/24/21 05:59 88 123/63 07/24/21 05:55 86 96 07/24/21 05:50 82 96 07/24/21 05:45 84 96 07/24/21 05:40 78 97 07/24/21 05:36 81 136/60 07/24/21 05:35 81 97 07/24/21 05:30 82 97 07/24/21 05:25 81 97 07/24/21 05:20 86 97 07/24/21 05:19 86 140/64 07/24/21 05:15 84 97 07/24/21 05:10 88 97 07/24/21 05:05 87 139/84 98 07/24/21 05:00 88 97 07/24/21 04:55 86 98 07/24/21 04:50 89 97 07/24/21 04:49 97 H 127/76 07/24/21 04:45 88 99 07/24/21 04:40 100 H 98 07/24/21 04:35 92 H 98 07/24/21 04:32 88 145/64 H 07/24/21 04:30 95 H 98 07/24/21 04:29 88 151/67 H 07/24/21 04:26 93 H 159/70 H 07/24/21 04:25 92 H 98 07/24/21 04:23 96 H 152/67 H 07/24/21 04:20 91 H 152/66 H 98 07/24/21 04:17 91 H 148/81 H 98 07/24/21 04:15 109 H 98 07/24/21 04:14 93 H 140/70 07/24/21 04:11 88 140/76 07/24/21 04:10 94 H 98 07/24/21 04:08 82 140/84 07/24/21 04:05 88 99 07/24/21 04:04 89 134/79 07/24/21 04:00 105 H 98 07/24/21 03:55 93 H 98 07/24/21 03:50 99 H 97 07/24/21 03:45 97 H 98 07/24/21 03:40 99 H 99 07/24/21 03:35 96 H 99 07/24/21 03:30 87 99 07/24/21 03:22 76 97 07/24/21 02:17 37.1 C 82 16 140/94 07/23/21 23:12 37.0 C 18 07/23/21 23:08 77 136/92 07/23/21 23:07 37.0 C 16
--- NOTE | 2021-07-24 13:19 | Obstetrical Progress Note ---
Date of Service July 24, 2021 Assessment & Plan Admission and Anticipated Discharge Date Admission Date: July 24, 2021 Subjective Patient is reevaluated. She feels rectal pressure. Vital signs stable afebrile, heart rate category 1 with occasional early decelerations with spontaneous recovery, Vaginal exam, cervix is 8 cm dilated, 90% effaced and head at 0 station, Continue to monitor closely. Results & Data ([facility]) Vital Signs (Past 12 Hours) Vital Signs Temp Pulse Resp BP Pulse Ox Pulse Ox 07/24/21 13:15 116 H 99 07/24/21 13:10 120 H 99 07/24/21 13:05 109 H 123/83 98 07/24/21 13:00 129 H 99 07/24/21 12:55 117 H 98 07/24/21 12:50 105 H 97 07/24/21 12:45 108 H 97 07/24/21 12:40 113 H 97 07/24/21 12:35 107 H 132/98 97 07/24/21 12:30 115 H 97 07/24/21 12:25 102 H 97 07/24/21 12:21 92 H 132/94 07/24/21 12:20 101 H 98 07/24/21 12:15 87 97 07/24/21 12:10 80 98 07/24/21 12:05 79 133/59 L 97 07/24/21 12:00 84 98 07/24/21 11:55 78 97 07/24/21 11:50 77 129/69 97 07/24/21 11:45 92 H 100 07/24/21 11:40 90 97 07/24/21 11:35 87 143/101 H 98 07/24/21 11:30 92 H 98 07/24/21 11:25 88 98 07/24/21 11:20 82 98 07/24/21 11:15 84 98 07/24/21 11:10 94 H 98 07/24/21 11:05 87 129/82 98 07/24/21 11:00 91 H 18 98 07/24/21 10:55 95 H 98 07/24/21 10:50 75 113/55 L 98 07/24/21 10:45 84 97 07/24/21 10:40 72 97 07/24/21 10:36 72 116/59 L 07/24/21 10:35 73 97 07/24/21 10:30 72 97 07/24/21 10:25 72 97 07/24/21 10:21 71 111/60 07/24/21 10:20 73 98 07/24/21 10:15 86 97 07/24/21 10:10 74 97 07/24/21 10:06 71 107/55 L 07/24/21 10:05 78 97 07/24/21 10:00 73 18 96 07/24/21 09:55 73 96 07/24/21 09:51 72 115/60 07/24/21 09:50 73 97 07/24/21 09:45 37.0 C 84 98 07/24/21 09:40 74 98 07/24/21 09:35 82 114/56 L 98 07/24/21 09:30 79 98 07/24/21 09:25 75 97 07/24/21 09:20 74 106/57 L 97 07/24/21 09:15 85 98 07/24/21 09:10 77 97 07/24/21 09:05 89 118/68 98 07/24/21 09:00 88 18 98 07/24/21 08:55 81 100 07/24/21 08:50 88 115/62 100 07/24/21 08:47 82 118/67 07/24/21 08:45 80 98 07/24/21 08:40 91 H 100 07/24/21 08:35 81 107/59 L 97 07/24/21 08:30 83 18 97 07/24/21 08:25 80 97 07/24/21 08:20 83 109/58 L 97 07/24/21 08:15 75 97 07/24/21 08:10 90 97 07/24/21 08:05 78 120/62 98 07/24/21 08:00 84 18 97 07/24/21 07:55 83 97 07/24/21 07:50 88 18 112/59 L 98 07/24/21 07:45 90 99 07/24/21 07:40 90 98 07/24/21 07:36 83 121/60 07/24/21 07:35 93 H 98 07/24/21 07:30 87 18 98 07/24/21 07:25 104 H 99 07/24/21 07:21 101 H 128/79 07/24/21 07:20 96 H 98 07/24/21 07:15 89 97 07/24/21 07:10 92 H 97 07/24/21 07:05 87 129/63 97 07/24/21 07:00 37.0 C 88 18 96 07/24/21 06:55 86 96 07/24/21 06:52 82 129/68 07/24/21 06:50 83 97 07/24/21 06:45 105 H 96 07/24/21 06:40 96 H 96 07/24/21 06:35 88 132/82 98 07/24/21 06:30 89 97 07/24/21 06:25 92 H 98 07/24/21 06:20 94 H 99 07/24/21 06:19 86 133/92 07/24/21 06:15 37.1 C 106 H 16 98 07/24/21 06:10 105 H 98 07/24/21 06:06 100 H 135/96 07/24/21 06:05 105 H 98 07/24/21 06:00 85 96 07/24/21 05:59 88 123/63 07/24/21 05:55 86 96 07/24/21 05:50 82 96 07/24/21 05:45 84 96 07/24/21 05:40 78 97 07/24/21 05:36 81 136/60 07/24/21 05:35 81 97 07/24/21 05:30 82 97 07/24/21 05:25 81 97 07/24/21 05:20 86 97 07/24/21 05:19 86 140/64 07/24/21 05:15 84 97 07/24/21 05:10 88 97 07/24/21 05:05 87 139/84 98 07/24/21 05:00 88 97 07/24/21 04:55 86 98 07/24/21 04:50 89 97 07/24/21 04:49 97 H 127/76 07/24/21 04:45 88 99 07/24/21 04:40 100 H 98 07/24/21 04:35 92 H 98 07/24/21 04:32 88 145/64 H 07/24/21 04:30 95 H 98 07/24/21 04:29 88 151/67 H 07/24/21 04:26 93 H 159/70 H 07/24/21 04:25 92 H 98 07/24/21 04:23 96 H 152/67 H 07/24/21 04:20 91 H 152/66 H 98 07/24/21 04:17 91 H 148/81 H 98 07/24/21 04:15 109 H 98 07/24/21 04:14 93 H 140/70 07/24/21 04:11 88 140/76 07/24/21 04:10 94 H 98 07/24/21 04:08 82 140/84 07/24/21 04:05 88 99 07/24/21 04:04 89 134/79 07/24/21 04:00 105 H 98 07/24/21 03:55 93 H 98 07/24/21 03:50 99 H 97 07/24/21 03:45 97 H 98 07/24/21 03:40 99 H 99 07/24/21 03:35 96 H 99 07/24/21 03:30 87 99 07/24/21 03:22 76 97 07/24/21 02:17 37.1 C 82 16 140/94
[2021-07-24] MEDS ORDERED: MINERAL OIL 30 ML UDC ONE (15:18)
[2021-07-24] MEDS ORDERED: LIDOCAINE 1% LOCAL 20 ML VIAL ONE ×2 (15:30→15:38)
[2021-07-24] MEDS ORDERED: ACETAMINOPHEN 325 MG TAB PO PRN (15:51)
[2021-07-24] MEDS ORDERED: bisacodyL 10 MG SUPP PR PRN (15:51)
[2021-07-24] MEDS ORDERED: MEASLES, MUMPS & RUBELLA VIRUS VIAL SQ ONE (15:51)
[2021-07-24] MEDS ORDERED: HYDROCORTISONE ACETATE 25 MG SUPP PR PRN (15:51)
[2021-07-24] MEDS ORDERED: DIPHTHERIA/TETANUS/PERTUSSIS 0.5 ML SYR/VIAL IM ONE (15:51)
[2021-07-24] MEDS ORDERED: BENZOCAINE 20% AER SPR 82.5 GM CAN EXT PRN (15:51)
--- NOTE | 2021-07-24 15:56 | Delivery Summary ---
Vaginal Delivery Summary Date of Service July 24, 2021 Vaginal Delivery Summary Patient was found to be fully dilated and desire to push. She pushed through 3 contractions and deliver the head without difficulty. The shoulders were delivered with minimal traction and the baby was handed off to the mother where mouth and nose were suctioned, the cord was clamped times and cut. The baby was handed off to the waiting pediatric team. The cord blood was obtained. The vagina and perineum were checked for lacerations. There was a small first-degree left labial laceration and a small second-degree vaginal laceration at 7 o'clock position. Patient had epidural but was feeling sharp pain on those areas. 1% lidocaine was used for local anesthesia. And vaginal laceration was repaired with 4-0 Vicryl in a running locked fashion and labia laceration was repaired with 3-0 Vicryl on SH needle in a running fashion. Excellent hemostasis achieved. The placenta was found to be in the vagina, delivered spontaneously as intact and complete. The uterus was explored and found to be empty, the lower segment was cleared of all clots and debris's. Fundus was firm and EBL was 200 mL. The mom and baby tolerated procedure well. The sponge needle instrument count was correct x2. The baby was a viable male , Apgars were 8/9 and weight is pending. No complications happened and I was present during whole procedure.
--- NOTE | 2021-07-24 16:44 | Anesthesia Procedure Note ---
Date of Service July 24, 2021 Anesthesia Post Epidural Note Vital Signs Vital Signs: Temp Pulse Resp BP Pulse Ox 36.7 C 117 H 18 112/52 L 97 07/24/21 13:02 07/24/21 16:35 07/24/21 14:30 07/24/21 16:35 07/24/21 15:50 Pain Intensity Bilateral Back: Pain Intensity: 0 Notes Mental Status: alert / awake / arousable and participated in evaluation Nausea / Vomiting: adequately controlled Pain: adequately controlled Airway Patency, RR, SpO2: stable & adequate BP & HR: stable & adequate Hydration State: stable & adequate Neuraxial Anesthesia: was administered and sensory block is resolving Anesthetic Complications: no major complications apparent and Pt Satisfied with anesthetic care Epidural: Removed without complications and With tip intact
[2021-07-24] MEDS: FLUoxetine HCL 10 MG CAP PO SCH (19:05)
[2021-07-24] MEDS: IBUPROFEN 600 MG TAB PO PRN (19:38)
[2021-07-24] MEDS: DOCUSATE SODIUM 100 MG CAP PO SCH (21:21)
[2021-07-25] MEDS: IBUPROFEN 600 MG TAB PO PRN ×4 (03:22→20:13)
[2021-07-25 06:58] LABS: Hematocrit (blood only) 28.9 % (37-47); Mean Corpuscular Hemoglobin 30.4 pg (25-34); Mean Corpuscular Hgb Conc 34.6 g/dL (32-36); Mean Corpuscular Volume 87.8 fL (80-100); Mean Platelet Volume 11.1 fL (7.4-10.4); Platelet Count 191 K/uL (130-400); RDW Coefficient of Variation 13.8 % (11.5-14.5); RDW Standard Deviation 44.5 fL (36.4-46.3); Red Blood Count 3.29 M/uL (4.2-5.4); White Blood Count 11.56 K/uL (4.8-10.8)
[2021-07-25] MEDS: DOCUSATE SODIUM 100 MG CAP PO SCH ×2 (08:44→20:13)
[2021-07-25] MEDS: PRENATAL VITAMIN 1 TAB PO SCH (08:44)
[2021-07-25] MEDS: FERROUS SULFATE 325 MG TAB PO SCH (08:44)
[2021-07-25] MEDS: FLUoxetine HCL 10 MG CAP PO SCH (08:45)
--- NOTE | 2021-07-25 10:02 | Obstetrical Progress Note ---
Date of Service July 25, 2021 Subjective Ambulation: ambulating normally Voiding: no voiding problems Diet Tolerance:: regular diet Lochia:: Small Feeding Type:: breast feeding Current Pain Level(1-10): 0 doing well pumping Physical Exam Constitutional WD/WN, vitals as above no pain fumdus firm no edema neg Deloris's for d/c in AM Results & Data ([facility]) Vital Signs (Past 12 Hours) Vital Signs Temp Pulse Resp BP Pulse Ox 07/25/21 08:00 36.6 C 83 18 118/74 98 07/25/21 03:10 36.7 C 88 16 134/89 97 07/24/21 23:00 36.7 C 107 H 16 122/80 97 Laboratory Results 07/24/21 07/24/21 07/24/21 01:54 01:54 01:54 WBC RBC Hgb Hct MCV MCH MCHC RDW Std Deviation RDW Coeff of Tomás Plt Count MPV Sodium 136 Potassium 4.2 Chloride 107 Carbon Dioxide 20 L Anion Gap 9 BUN 18 Creatinine 0.65 Est Cr Clr Drug Dosing 160.4 Est GFR ( Amer) 146.1 Est GFR (Non-Af Amer) 126.0 BUN/Creatinine Ratio 27.7 H Glucose 84 Calcium 9.1 Total Bilirubin 0.3 AST 15 ALT 8 Alkaline Phosphatase 172 H Total Protein 6.6 Albumin 3.4 Globulin 3.2 Albumin/Globulin Ratio 1.1 Ur Random Creatinine U Random Total Protein Protein/Creatinin Ratio RPR Nonreactive HIV (1&2) Ag & Ab Conf HIV 1&2 Ab/P24 Ag 4thGn SARS-CoV-2, RNA, NAAT Blood Type O Negative Antibody Screen NEGATIVE 07/24/21 07/24/21 07/24/21 01:54 01:54 01:54 WBC 11.97 H RBC 4.17 L Hgb 13.0 Hct 36.6 L MCV 87.8 MCH 31.2 MCHC 35.5 RDW Std Deviation 43.6 RDW Coeff of Tomás 13.6 Plt Count 248 MPV 11.6 H Sodium Potassium Chloride Carbon Dioxide Anion Gap BUN Creatinine Est Cr Clr Drug Dosing Est GFR ( Amer) Est GFR (Non-Af Amer) BUN/Creatinine Ratio Glucose Calcium Total Bilirubin AST ALT Alkaline Phosphatase Total Protein Albumin Globulin Albumin/Globulin Ratio Ur Random Creatinine U Random Total Protein Protein/Creatinin Ratio RPR HIV (1&2) Ag & Ab Conf Cancelled HIV 1&2 Ab/P24 Ag 4thGn Neg SARS-CoV-2, RNA, NAAT Blood Type Antibody Screen 07/24/21 07/24/21 07/25/21 02:00 02:20 06:33 WBC 11.56 H RBC 3.29 L Hgb 10.0 L D Hct 28.9 L MCV 87.8 MCH 30.4 MCHC 34.6 RDW Std Deviation 44.5 RDW Coeff of Tomás 13.8 Plt Count 191 MPV 11.1 H Sodium Potassium Chloride Carbon Dioxide Anion Gap BUN Creatinine Est Cr Clr Drug Dosing Est GFR ( Amer) Est GFR (Non-Af Amer) BUN/Creatinine Ratio Glucose Calcium Total Bilirubin AST ALT Alkaline Phosphatase Total Protein Albumin Globulin Albumin/Globulin Ratio Ur Random Creatinine 145.0 U Random Total Protein 27.7 H Protein/Creatinin Ratio 0.2 RPR HIV (1&2) Ag & Ab Conf HIV 1&2 Ab/P24 Ag 4thGn SARS-CoV-2, RNA, NAAT NEGATIVE Blood Type Antibody Screen
[2021-07-25] MEDS ORDERED: bisacodyL 5 MG TABEC PO SCH (20:00)
[2021-07-26 06:42] LABS: Hematocrit (blood only) 34.1 % (37-47); Hemoglobin 11.3 g/dL (12.0-16.0)
[2021-07-26] MEDS: FERROUS SULFATE 325 MG TAB PO SCH (08:23)
[2021-07-26] MEDS: DOCUSATE SODIUM 100 MG CAP PO SCH (08:23)
[2021-07-26] MEDS: FLUoxetine HCL 10 MG CAP PO SCH (08:24)
[2021-07-26] MEDS: PRENATAL VITAMIN 1 TAB PO SCH (08:24)
[2021-07-26] MEDS: IBUPROFEN 600 MG TAB PO PRN (08:28)
--- NOTE | 2021-07-26 09:02 | Obstetrical Progress Note ---
Date of Service July 26, 2021 Assessment & Plan Admission and Anticipated Discharge Date Admission Date: July 24, 2021 Subjective Patient is seen and examined. She feels well, no complaints. Ambulating without dizziness Voiding without difficulty Tolerating regular diet with out N&V Bleeding is minimal No fever/ chills/ CP/ SOB/ N&V/ Leg pain Breast feeding without problems Vital Signs Temp Pulse Resp BP BP Pulse Ox 07/26/21 08:20 36.7 C 88 18 118/78 98 07/25/21 23:20 36.7 C 81 16 113/74 97 07/25/21 19:15 36.6 C 92 H 16 129/82 98 07/25/21 15:42 36.7 C 87 18 120/75 97 07/25/21 11:35 36.7 C 88 18 113/75 98 Lab Results 07/24/21 07/24/21 07/24/21 Range/Units 01:54 01:54 01:54 WBC (4.8-10.8) K/uL RBC (4.2-5.4) M/uL Hgb (12.0-16.0) g/dL Hct (37-47) % MCV (80-100) fL MCH (25-34) pg MCHC (32-36) g/dL RDW Std Deviation (36.4-46.3) fL RDW Coeff of Tomás (11.5-14.5) % Plt Count (130-400) K/uL MPV (7.4-10.4) fL Sodium 136 (136-145) mmol/L Potassium 4.2 (3.5-5.1) mmol/L Chloride 107 (98-107) mmol/L Carbon Dioxide 20 L (21-32) mmol/L Anion Gap 9 (3-11) BUN 18 (6-23) mg/dl Creatinine 0.65 (0.6-1.2) mg/dl Est Cr Clr Drug Dosing 160.4 ml/min Est GFR ( Amer) 146.1 ml/min Est GFR (Non-Af Amer) 126.0 ml/min BUN/Creatinine Ratio 27.7 H (10-20) Glucose 84 (70-99(Fasting)) mg/dl Calcium 9.1 (8.5-10.1) mg/dl Total Bilirubin 0.3 (0.2-1.0) mg/dl AST 15 (13-39) U/L ALT 8 (7-52) U/L Alkaline Phosphatase 172 H (34-104) U/L Total Protein 6.6 (6.0-8.3) gm/dl Albumin 3.4 (3.4-5.0) gm/dl Globulin 3.2 (2.5-4.0) gm/dl Albumin/Globulin Ratio 1.1 (0.9-2) Ur Random Creatinine mg/dl U Random Total Protein (0-11.9) mg/dl Protein/Creatinin Ratio (0-0.2) RPR Nonreactive (Nonreactive) HIV (1&2) Ag & Ab Conf HIV 1&2 Ab/P24 Ag 4thGn (Neg) SARS-CoV-2, RNA, NAAT (NEGATIVE) Blood Type O Negative Antibody Screen NEGATIVE 07/24/21 07/24/21 07/24/21 Range/Units 01:54 01:54 01:54 WBC 11.97 H (4.8-10.8) K/uL RBC 4.17 L (4.2-5.4) M/uL Hgb 13.0 (12.0-16.0) g/dL Hct 36.6 L (37-47) % MCV 87.8 (80-100) fL MCH 31.2 (25-34) pg MCHC 35.5 (32-36) g/dL RDW Std Deviation 43.6 (36.4-46.3) fL RDW Coeff of Tomás 13.6 (11.5-14.5) % Plt Count 248 (130-400) K/uL MPV 11.6 H (7.4-10.4) fL Sodium (136-145) mmol/L Potassium (3.5-5.1) mmol/L Chloride (98-107) mmol/L Carbon Dioxide (21-32) mmol/L Anion Gap (3-11) BUN (6-23) mg/dl Creatinine (0.6-1.2) mg/dl Est Cr Clr Drug Dosing ml/min Est GFR ( Amer) ml/min Est GFR (Non-Af Amer) ml/min BUN/Creatinine Ratio (10-20) Glucose (70-99(Fasting)) mg/dl Calcium (8.5-10.1) mg/dl Total Bilirubin (0.2-1.0) mg/dl AST (13-39) U/L ALT (7-52) U/L Alkaline Phosphatase (34-104) U/L Total Protein (6.0-8.3) gm/dl Albumin (3.4-5.0) gm/dl Globulin (2.5-4.0) gm/dl Albumin/Globulin Ratio (0.9-2) Ur Random Creatinine mg/dl U Random Total Protein (0-11.9) mg/dl Protein/Creatinin Ratio (0-0.2) RPR (Nonreactive) HIV (1&2) Ag & Ab Conf Cancelled HIV 1&2 Ab/P24 Ag 4thGn Neg (Neg) SARS-CoV-2, RNA, NAAT (NEGATIVE) Blood Type Antibody Screen 07/24/21 07/24/21 07/25/21 Range/Units 02:00 02:20 06:33 WBC 11.56 H (4.8-10.8) K/uL RBC 3.29 L (4.2-5.4) M/uL Hgb 10.0 L D (12.0-16.0) g/dL Hct 28.9 L (37-47) % MCV 87.8 (80-100) fL MCH 30.4 (25-34) pg MCHC 34.6 (32-36) g/dL RDW Std Deviation 44.5 (36.4-46.3) fL RDW Coeff of Tomás 13.8 (11.5-14.5) % Plt Count 191 (130-400) K/uL MPV 11.1 H (7.4-10.4) fL Sodium (136-145) mmol/L Potassium (3.5-5.1) mmol/L Chloride (98-107) mmol/L Carbon Dioxide (21-32) mmol/L Anion Gap (3-11) BUN (6-23) mg/dl Creatinine (0.6-1.2) mg/dl Est Cr Clr Drug Dosing ml/min Est GFR ( Amer) ml/min Est GFR (Non-Af Amer) ml/min BUN/Creatinine Ratio (10-20) Glucose (70-99(Fasting)) mg/dl Calcium (8.5-10.1) mg/dl Total Bilirubin (0.2-1.0) mg/dl AST (13-39) U/L ALT (7-52) U/L Alkaline Phosphatase (34-104) U/L Total Protein (6.0-8.3) gm/dl Albumin (3.4-5.0) gm/dl Globulin (2.5-4.0) gm/dl Albumin/Globulin Ratio (0.9-2) Ur Random Creatinine 145.0 mg/dl U Random Total Protein 27.7 H (0-11.9) mg/dl Protein/Creatinin Ratio 0.2 (0-0.2) RPR (Nonreactive) HIV (1&2) Ag & Ab Conf HIV 1&2 Ab/P24 Ag 4thGn (Neg) SARS-CoV-2, RNA, NAAT NEGATIVE (NEGATIVE) Blood Type Antibody Screen 07/26/21 Range/Units 06:11 WBC (4.8-10.8) K/uL RBC (4.2-5.4) M/uL Hgb 11.3 L (12.0-16.0) g/dL Hct 34.1 L (37-47) % MCV (80-100) fL MCH (25-34) pg MCHC (32-36) g/dL RDW Std Deviation (36.4-46.3) fL RDW Coeff of Tomás (11.5-14.5) % Plt Count (130-400) K/uL MPV (7.4-10.4) fL Sodium (136-145) mmol/L Potassium (3.5-5.1) mmol/L Chloride (98-107) mmol/L Carbon Dioxide (21-32) mmol/L Anion Gap (3-11) BUN (6-23) mg/dl Creatinine (0.6-1.2) mg/dl Est Cr Clr Drug Dosing ml/min Est GFR ( Amer) ml/min Est GFR (Non-Af Amer) ml/min BUN/Creatinine Ratio (10-20) Glucose (70-99(Fasting)) mg/dl Calcium (8.5-10.1) mg/dl Total Bilirubin (0.2-1.0) mg/dl AST (13-39) U/L ALT (7-52) U/L Alkaline Phosphatase (34-104) U/L Total Protein (6.0-8.3) gm/dl Albumin (3.4-5.0) gm/dl Globulin (2.5-4.0) gm/dl Albumin/Globulin Ratio (0.9-2) Ur Random Creatinine mg/dl U Random Total Protein (0-11.9) mg/dl Protein/Creatinin Ratio (0-0.2) RPR (Nonreactive) HIV (1&2) Ag & Ab Conf HIV 1&2 Ab/P24 Ag 4thGn (Neg) SARS-CoV-2, RNA, NAAT (NEGATIVE) Blood Type Antibody Screen PE: General: Alert, orientedx3, NAD Abd: soft, NT, fundus firm, below Umbilicus Perineum intact, Lochia rubra minimal Ext; NT, no edema AP: 20 yo s/p , ppd# 2 VSS Afebrile doing well Continue routine care All questions were answered Discussed when to call D/C home , f/u in office Results & Data ([facility]) Vital Signs (Past 12 Hours) Vital Signs Temp Pulse Resp BP BP Pulse Ox 07/26/21 08:20 36.7 C 88 18 118/78 98 07/25/21 23:20 36.7 C 81 16 113/74 97
== END 2021-07-26 11:15 | disposition home or self-care (01) | DRG 807 ==
LOC: OPB 22:58 → 4S1 22:59 → 4S2 07-24 18:30 → 4E1 07-26 09:20